=== PATIENT | male | born 1970 | race African-American/Black ===

== ENCOUNTER 2017-04-29 21:57 | Inpatient (IN) ==
[2017-04-29] MEDS ORDERED: MORPHINE 2 MG/1 ML SYRINGE ONE (22:05)
[2017-04-29] MEDS ORDERED: ONDANSETRON 4 MG/2 ML VIAL ONE (22:05)
[2017-04-29] MEDS ORDERED: ENOXAPARIN 60 MG/0.6 ML SYRINGE SUBCUT STA (22:13)
[2017-04-29] MEDS ORDERED: ENOXAPARIN 30 MG/0.3 ML SYRINGE ONE (22:17)
[2017-04-29] MEDS ORDERED: ENOXAPARIN 80 MG/0.8 ML SYRINGE SUBCUT ONE (22:17)
--- NOTE | 2017-04-29 22:21 | Emergency Department Note ---
IKori Rolonda, am scribing for, and in the presence of, Tonie Maguire DO 22: 21. IAndrez Debra, DO, personally performed the services described in this documentation, ascribed by Alicia Sheikh in my presence, and it is both accurate and complete . Arrival - Arrival Mode of Arrival: Stretcher Limitations: No Limitations Source: EMS, Old Records Reviewed, RN Notes Reviewed - History of Present Illness HPI Narrative: Pt is a 46 y/o male who presents to the ED via EMS for further evaluation of chest pain with an onset of minutes ago. 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 EMS states that pt stated his chest pain felt like "indigestion" and he began to smoke a cigarette s/p chest pain occurred and that is when pt became SOB. 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 Pt's BP was 180 in which EMS gave pt 4 baby ASA decreasing pt's BP to 108 then 103. EMS states that pt was ambulatory APPLICATION ANALYST. No other history available. Onset (ago): minute(s) Consistency: constant Severity: severe Severity scale (1-10): 8 Allergies/Adverse Reactions: Allergies Allergy/AdvReac Type Severity Reaction Status Date / Time No Known Allergies Allergy Verified 04/29/17 22:12 Home Medications: Home Medications Medication Instructions Recorded Confirmed Type No Known Home Medications [No 04/29/17 04/29/17 History Known Home Medications] Review of System - Review of System ROS unobtainable: other Exam Vital Signs: Vital Signs Temperature 98.3 F 04/29/17 21:57 Pulse Rate 69 04/29/17 21:57 Respiratory Rate 20 04/29/17 21:57 Blood Pressure 79/44 04/29/17 21:57 O2 Sat by Pulse Oximetry 98 04/29/17 21:57 - Head Head exam: Present: atraumatic, normocephalic - Eye Eye exam: Present: PERRL, EOMI - ENT ENT exam: Present: mucous membranes moist. Absent: mucous membranes dry - Neck Neck exam: Present: full ROM. Absent: tenderness - Chest Chest inspection: Present: symmetric chest wall rise. Absent: tenderness - Respiratory Respiratory exam: Present: rales (throughout) - Cardiovascular Cardiovascular exam: Present: bradycardia, normal heart sounds - Abdominal Exam Abdominal exam: Present: soft, normal bowel sounds. Absent: tenderness - Extremities Exam Extremities exam: Present: full ROM. Absent: tenderness - Back Exam Back exam: Present: full ROM. Absent: tenderness - Neurological Exam Neurological exam: Present: alert, oriented X3, CN II-XII intact - Psychiatric Psychiatric exam: Present: normal affect, normal mood - Skin Skin exam: Present: warm, dry, intact, normal color. 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 pt is stable at this time. he did admit to doing some cocaine yesterday Disposition Clinical Impression: ST elevation myocardial infarction (STEMI) Case discussed with: patient Disposition: Still a Patient Condition: Stable Time of Disposition: 22:15
[2017-04-29] MEDS ORDERED: ATORVASTATIN 40 MG TABLET ONE (22:22)
[2017-04-29 22:23] LABS: Basophils # 0.1 10*3/uL (0.0-0.2); Basophils % 0.4 % (0.0-0.8); Eosinophils # 0.1 10*3/uL (0.0-0.87); Eosinophils % 0.7 % (0.00-10.9); Hematocrit 37.5 VOL% (42.0-52.0); Hemoglobin 12.9 GM/DL (14.0-18.0); Immature Granulocytes % 0.5 %; Immature Granulocytes Absolute 0.06 #; Lymphocytes # 3.9 10*3/uL (1.4-4.0); Lymphocytes % 32.2 % (21.2-54.2); Mean Corpuscular HGB Conc 34.4 GM/DL (32-36); Mean Corpuscular Hemoglobin 32 PG (27-34); Mean Corpuscular Volume 91.9 FL (87-102); Monocytes # 0.9 10*3/uL (0.11-0.8); Monocytes % 7.2 % (1.7-12.7); Neutrophils # 7.1 10*3/uL (1.4-7.4); Platelet Count 204 T/CUMM (130-400); Red Blood Count 4.08 MC/CUMM (3.8-5.5); Red Cell Distribution Width 13.9 % (9.3-17.3)
[2017-04-29] MEDS ORDERED: TIROFIBAN 5,000 MCG/100 ML PREMIX IV ONE (22:23)
[2017-04-29] MEDS ORDERED: MIDAZOLAM 2 MG/2 ML VIAL IV ONE (22:31)
[2017-04-29] MEDS ORDERED: TICAGRELOR 90 MG TABLET PO ONE (22:31)
[2017-04-29] MEDS ORDERED: HYDROmorphone 2 MG/1 ML VIAL IV ONE (22:31)
[2017-04-29] MEDS ORDERED: LIDOCAINE 1% 20 ML VIAL MISC INJ ONE (22:31)
--- NOTE | 2017-04-29 22:33 | Cardiology History & Physical ---
Assessment and Plan (1) Cocaine abuse Status: Acute (2) Smoker Status: Acute (3) HTN (hypertension) Status: Acute (4) ST elevation myocardial infarction (STEMI) Status: Acute Assessment and plan: 1. 46-year-old smoker with hypertension who admits to using cocaine yesterday with chest pain in the low substernal area for about an hour and a half with anterior injury pattern, and ongoing severe chest pain. 2. Hypotensive; agree with normal saline bolus. 3. High intensity statin with full dose Lovenox, aspirin, and Aggrastat bolus and infusion 4. We will take emergently to the [facility] for angiography intervention is appropriate. 5. Discussed his absolute need to stop all smoking and cocaine going forward he reports "the cocaine was just a one-time mistake" Addendum: Of note he did have similar 5 hours of chest pain a month ago but he did not go to the hospital and he reports that he was fine in the interim. I discussed with the patient the risks and benefits of heart catheterization including but not limited to: , stroke, heart attack, vascular damage, reaction to medicine or dye, bleeding requiring blood transfusion, failure of the procedure, and the possible need for planned or emergency surgery. I have answered all the patient's questions regarding the procedure, and the patient is agreeable to proceed. History of Present Illness Chief complaint: cp History of present illness: Mr. Camilo is a 46 year old male Home Medications Medication Instructions Recorded Confirmed Type No Known Home Medications [No 04/29/17 04/29/17 History Known Home Medications] Allergies Allergy/AdvReac Type Severity Reaction Status Date / Time No Known Allergies Allergy Verified 04/29/17 22:12 Medical,Surgical,& Family Hx - Medical History Cardio: History of: Hypertension (noncompliant with meds) - Social History Smoking Status: Current every day smoker Frequency of Alcohol Use: Occasionally Type of Drug Use: Marijuana Cardiology Physical Exam - Constitutional Vitals: Vital Signs Temp Pulse Resp BP Pulse Ox 98.3 F 69 20 79/44 98 04/29/17 21:57 04/29/17 21:57 04/29/17 21:57 04/29/17 21:57 04/29/17 21:57 Intake and Output 04/29/17 04/29/17 04/29/17 07:59 15:59 23:59 Other: Weight 52.617 kg Patient Weight 04/29/17 23:59 Weight 52.617 kg General appearance: normal weight, severe distress - Head Head exam: Present: normal inspection, normocephalic, atraumatic - Neck Neck exam: Present: normal inspection - Respiratory Respiratory exam: Present: clear to auscultation bilaterally. Absent: stridor, wheezes - Cardiovascular Cardiovascular exam: Present: regular rate and rhythm. Absent: diastolic murmur , rubs, systolic murmur - GI/Abdominal GI/Abdominal exam: Present: soft. Absent: tenderness - Extremities Exam Extremities exam: Absent: edema - Neurological Exam Neurological exam: Present: oriented X3, other Result/EKG - Labs CBC & BMP: 04/29/17 22:11 Labs: Laboratory Results - last 24 hr 04/29/17 22:11 WBC 12.0 RBC 4.08 Hgb 12.9 L Hct 37.5 L MCV 91.9 MCH 32 MCHC 34.4 RDW 13.9 Plt Count 204 MPV 9.0 L Neut % (Auto) 59.0 Lymph % (Auto) 32.2 [place] % (Auto) 7.2 Eos % (Auto) 0.7 Baso % (Auto) 0.4 Neut # (Auto) 7.1 Lymph # (Auto) 3.9 [place] # (Auto) 0.9 H Eos # (Auto) 0.1 Baso # (Auto) 0.1 Immature Gran % 0.5 Nucleated RBC % 0.0 Immature Gran # 0.06 Nucleated RBCs # 0.00 - EKG EKG results: sinus rhythm (Anterior injury pattern with PVCs in her cervical chain)
[2017-04-29 22:41] LABS: INR 1.1; PT Patient Result 11.2 SECS
[2017-04-29 22:47] LABS: Barbiturates Screen,Urine Negative (Negative); Benzodiazepines Screen,Urine Negative (Negative); Cannabinoid Screen,Urine Positive (Negative); Opiate Screen,Urine Negative (Negative); Phencyclidine Screen,Urine Negative (Negative)
[2017-04-29 22:50] LABS: Alanine Aminotransferase 26 U/L (16-61); Albumin 3.2 G/DL (3.4-5.0); Alkaline Phosphatase 49 U/L (45-117); Aspartate Amino Transferase 27 U/L (0-37); Blood Urea Nitrogen 15 MG/DL (7-18); CKMB % 1.5 %; Calcium 8.4 MG/DL (8.5-10.1); Glucose 130 MG/DL (74-106); Osmolality,Calculated 285.1 MOS/KG (273-304); Sodium 142 MMOL/L (136-145); Total Protein 6.4 G/DL (6.4-8.3); Troponin I Only < 0.015 NG/ML (0.00-0.045)
[2017-04-29 22:57] LABS: Eosinophils 2 % (0-10); Lymphocytes 27 % (20-55); Segmented Neutrophils 64 % (50-85); Total Cells Counted 100
[2017-04-29 22:58] LABS: Platelet Estimate Normal
[2017-04-29] MEDS ORDERED: ACETAMINOPHEN 325 MG TABLET PO PRN (23:11)
--- NOTE | 2017-04-29 23:21 | Cardiac Catheterization ---
Date of Procedure:: 04/29/17 Post-op diagnosis: same Procedure: Procedures performed: 1. Left heart catheterization 2. Coronary angiography 3. Left ventriculography 4. Angioplasty and stenting of critical proximal LAD disease with drug-eluting stent (3.5 x 20 synergy) 5. Right femoral arteriotomy closure with minx device Brief clinical summary: Mr. cAharya is a 46-year-old smoker with history of recent cocaine use with anterior injury pattern on EKG. Description of procedure: After obtaining informed consent, the right groin was prepped and draped in the usual sterile fashion. Next a short 6 Hebrew sheath was placed in the right femoral artery using a modified Seldinger technique, after the patient received IV sedation and local anesthetic. Next and EBU 3.5 guiding cath was advancing his left coronary arm which engaged the vessel with some difficulty and provided modest support. Next a pro-water wire was advanced the distal LAD with little difficulty. After this a 3.0 x 15 balloon was advanced crosshair proximal LAD disease was dilated to approximately nominal pressures. There is residual stenosis of approximate 50% . The balloon was removed and a 3.5 x 20 Synergy stent was advanced across her disease and deployed at rated burst pressure. Stent was well-positioned but appear to be slightly undersized. Therefore without moving the balloon I slowly dilated up to above rated burst pressure to 4.1 mm. There was an excellent radiographic result. The patient's chest pain was dramatically improved after the procedure. His STs appeared to drop during the beginning of the procedure. Hemostasis was obtained with a mixed device as the sheath was inserted and a high bifurcation. There was slight residual bleeding and small hematoma which was controlled with manual pressure. Patient was transferred to the CCU in good condition after the procedure. Coronary angiography: Left main coronary is normal development free disease. Left anterior descending artery is large average caliber and wraps around the apex. There is a approximately thrombus causing approximate 95% stenosis but there is PATRICIO III flow. There are 3 thin diagonal branches. The circumflex gives off an average caliber long OM 1 and OM 2 branch and a large an average OM 3 branch. The right quires a dominant vessel is large an average caliber. There is large an average long PDA and a thin posterior lateral. Left ventriculography: Left ventricle is normal size is normal LV systolic function ejection fraction estimated 55%. There is no segmental wall motion normality. Impression: 1. Normal LV systolic function ejection fraction estimated 55% without segmental wall motion mildly 2. Right dominant system 3. Single-vessel coronary disease with thrombotic 95% proximal LAD disease ( culprit lesion) 4. Status post angioplasty and stenting of critical proximal LAD thrombus with drug-eluting stent (3.5 x 20 Synergy with excellent result after dilating to 4.01 mm Recommendation discussion: I would she we achieved very good result cart distending Mr. Camilo culprit proximal AT thrombus. He will need to continue on Brilinta and aspirin. We will watch him closely in the CCU. He had some hypotension initially which resolved in the [facility] after intervention and with normal saline bolus it was started in the ER. He will need to avoid exposure to smoking or cocaine to avoid recurrent cardiovascular events and stroke. Anesthesia: minimal conscious sedation Surgeon / Physician: Glenn Dominguez Playground Aide: other Estimated blood loss: minimal Specimens: none sent Condition: stable Disposition: ICU/CCU - Discharge Disposition: Still a Patient - Medications / Follow-up
[2017-04-29] MEDS ORDERED: SODIUM CHLORIDE 0.9% 1,000 ML IV SCH (23:30)
[2017-04-30 03:36] LABS: Apearance,Urine CLEAR (Clear); Bacteria,Urine Few /HPF (Few); Bilirubin,Urine Negative (Negative); Blood, Urine Large mg/dL (Negative); Glucose,Urine (UA) Negative (Negative); Ketones,Urine Negative (Negative); Nitrite,Urine Negative (Negative); Protein,Urine 30 MG/DL; RBC,Urine 108 /HPF (0-4); Urine Color Yellow (Yellow); Urine Specific Gravity > 1.060 (1.001-1.035); Urine Urobilinogen < 2.0 EU/DL (0.2-1.0)
--- NOTE | 2017-04-30 04:37 | EKG Report ---
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
[2017-04-30 04:56] LABS: Basophils % 0.2 % (0.0-0.8); Eosinophils % 0.2 % (0.00-10.9); Hematocrit 37.7 VOL% (42.0-52.0); Hemoglobin 12.9 GM/DL (14.0-18.0); Immature Granulocytes % 0.3 %; Immature Granulocytes Absolute 0.04 #; Lymphocytes # 1.8 10*3/uL (1.4-4.0); Lymphocytes % 14.9 % (21.2-54.2); Mean Corpuscular HGB Conc 34.2 GM/DL (32-36); Mean Corpuscular Hemoglobin 32 PG (27-34); Mean Corpuscular Volume 92.4 FL (87-102); Mean Platelet Volume 9.1 FL (9.6-12.0); Monocytes # 0.8 10*3/uL (0.11-0.8); Monocytes % 6.8 % (1.7-12.7); Neutrophils # 9.4 10*3/uL (1.4-7.4); Neutrophils % 77.6 % (38.7-73.9); Platelet Count 181 T/CUMM (130-400); Red Blood Count 4.08 MC/CUMM (3.8-5.5); Red Cell Distribution Width 13.9 % (9.3-17.3); White Blood Count 12.2 T/CUMM (4-12)
[2017-04-30 05:27] LABS: CKMB % 4.7 %; Calcium 7.9 MG/DL (8.5-10.1); Osmolality,Calculated 281.3 MOS/KG (273-304); Potassium 4.4 MMOL/L (3.5-5.1)
[2017-04-30 05:29] LABS: Troponin I Only 2.82 NG/ML (0.00-0.045)
--- NOTE | 2017-04-30 06:25 | EKG Report ---
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
--- NOTE | 2017-04-30 06:49 | XRay Report ---
XR chest 1V portable Indication: Chest pain Comparison: None available Findings: The heart and mediastinum are normal in size and configuration. The pulmonary vascularity is normal in caliber. No lung infiltrates, effusions, pneumothorax or other abnormality is demonstrated. Impression: Normal chest x-ray PROCEDURE INTERPRETED AT [facility] DEPARTMENT OF RADIOLOGY Final Report Signed by: Dr. Alexis Hill
--- NOTE | 2017-04-30 06:51 | Cardiology Progress Note ---
Cardiology - PN: Subj Interval history: Cardiology note Day 1 status post anterior GA with LAD stent No chest pain Telemetry shows sinus rhythm in the 60s O2 sat 96% on room air Blood pressure 117/70 Regular rhythm no murmur or gallop Clear lungs Abdomen benign Right groin soft and dry. No bruit or hematoma. Distal pulses 2+ symmetric. Lab data White count 12.2 hemoglobin 12.9 hematocrit 37.7 141 sodium potassium 4.4 chloride 110 CO2 25 BUN 15 creatinine 1.10 glucose 95 Peak CPK 401 troponin 2.82 BNP 14 Urine drug screen positive for cocaine and marijuana Impression Status post anterior GA with proximal LAD stent EF 55% with patent right coronary and circumflex Cocaine abuse Plan DC yun Aspirin 81 mg daily and Brilinta 90 mg twice daily Begin atorvastatin 40 mg daily Routine groin precautions discussed with patient Transfer to telemetry okay with me Exam (Progress Note) - Constitutional Vitals: Period Temp Pulse Resp BP Sys/Paz Pulse Ox Last 24 Hr 97.4 F-98.3 F 55-78 11-22 79-126/44-82 93-98 Result/EKG - Labs CBC & BMP: 04/30/17 04:25 04/30/17 04:25 Labs: Laboratory Results - last 24 hr 04/29/17 04/29/17 04/29/17 22:11 22:11 22:11 WBC 12.0 RBC 4.08 Hgb 12.9 L Hct 37.5 L MCV 91.9 MCH 32 MCHC 34.4 RDW 13.9 Plt Count 204 MPV 9.0 L Neut % (Auto) 59.0 Lymph % (Auto) 32.2 [place] % (Auto) 7.2 Eos % (Auto) 0.7 Baso % (Auto) 0.4 Neut # (Auto) 7.1 Lymph # (Auto) 3.9 [place] # (Auto) 0.9 H Eos # (Auto) 0.1 Baso # (Auto) 0.1 Total Counted 100 Immature Gran % 0.5 Nucleated RBC % 0.0 Immature Gran # 0.06 Segmented Neutrophils 64 Lymphocytes 27 Monocytes 7 Eosinophils 2 Nucleated RBCs # 0.00 Platelet Estimate Normal Pappenheimer Bodies Residential [place] INR 1.1 PT Patient/Control Mix 11.2 Circ Anticoag PTT 26.0 Sodium 142 Potassium 4.0 Chloride 109 H Carbon Dioxide 24 Anion Gap 13.0 BUN 15 Creatinine 1.30 GFR Calculation 72 BUN/Creatinine Ratio 11.00 Glucose 130 H Calculated Osmolality 285.1 Calcium 8.4 L Total Bilirubin 0.80 AST 27 ALT 26 Alkaline Phosphatase 49 Total Creatine Kinase 401 H CK-MB (CK-2) 6.0 H CK and CKMB Interp 1.5 Troponin I < 0.015 B-Natriuretic Peptide Total Protein 6.4 Albumin 3.2 L Globulin 3.2 Albumin/Globulin Ratio 1.0 L Urine Color Urine Appearance Urine pH Ur Specific [place] Urine Protein Urine Glucose (UA) Urine Ketones Urine Blood Urine Nitrate Urine Bilirubin Urine Urobilinogen Urine Leukocytes Urine RBC Urine Bacteria Ur Culture Indicated? Urine Opiates Screen Ur Barbiturates Screen Ur Phencyclidine Scrn U Amphetamine/Methamph U Benzodiazepines Scrn U Cocaine Metab Screen U Cannabinoids Screen 04/29/17 04/29/17 04/30/17 22:11 22:11 01:00 WBC RBC Hgb Hct MCV MCH MCHC RDW Plt Count MPV Neut % (Auto) Lymph % (Auto) [place] % (Auto) Eos % (Auto) Baso % (Auto) Neut # (Auto) Lymph # (Auto) [place] # (Auto) Eos # (Auto) Baso # (Auto) Total Counted Immature Gran % Nucleated RBC % Immature Gran # Segmented Neutrophils Lymphocytes Monocytes Eosinophils Nucleated RBCs # Platelet Estimate Pappenheimer Bodies INR PT Patient/Control Mix Circ Anticoag PTT Sodium Potassium Chloride Carbon Dioxide Anion Gap BUN Creatinine GFR Calculation BUN/Creatinine Ratio Glucose Calculated Osmolality Calcium Total Bilirubin AST ALT Alkaline Phosphatase Total Creatine Kinase CK-MB (CK-2) CK and CKMB Interp Troponin I B-Natriuretic Peptide 14 Total Protein Albumin Globulin Albumin/Globulin Ratio Urine Color Yellow Urine Appearance Clear Urine pH 5.0 Ur Specific [place] > 1.060 H Urine Protein 30 Urine Glucose (UA) Negative Urine Ketones Negative Urine Blood Large Urine Nitrate Negative Urine Bilirubin Negative Urine Urobilinogen < 2.0 H Urine Leukocytes Negative Urine RBC 108 Urine Bacteria Few Ur Culture Indicated? Not indicated Urine Opiates Screen Negative Ur Barbiturates Screen Negative Ur Phencyclidine Scrn Negative U Amphetamine/Methamph Negative U Benzodiazepines Scrn Negative U Cocaine Metab Screen Positive H U Cannabinoids Screen Positive H 04/30/17 04/30/17 04:25 04:25 WBC 12.2 H RBC 4.08 Hgb 12.9 L Hct 37.7 L MCV 92.4 MCH 32 MCHC 34.2 RDW 13.9 Plt Count 181 MPV 9.1 L Neut % (Auto) 77.6 H Lymph % (Auto) 14.9 L [place] % (Auto) 6.8 Eos % (Auto) 0.2 Baso % (Auto) 0.2 Neut # (Auto) 9.4 H Lymph # (Auto) 1.8 [place] # (Auto) 0.8 Eos # (Auto) 0.0 Baso # (Auto) 0.0 Total Counted Immature Gran % 0.3 Nucleated RBC % 0.0 Immature Gran # 0.04 Segmented Neutrophils Lymphocytes Monocytes Eosinophils Nucleated RBCs # 0.00 Platelet Estimate Pappenheimer Bodies INR PT Patient/Control Mix Circ Anticoag PTT Sodium 141 Potassium 4.4 Chloride 110 H Carbon Dioxide 25 Anion Gap 10.4 BUN 15 Creatinine 1.10 GFR Calculation 88 BUN/Creatinine Ratio 13.00 Glucose 95 Calculated Osmolality 281.3 Calcium 7.9 L Total Bilirubin AST ALT Alkaline Phosphatase Total Creatine Kinase 381 H CK-MB (CK-2) 17.9 H D CK and CKMB Interp 4.7 Troponin I 2.820 H D B-Natriuretic Peptide Total Protein Albumin Globulin Albumin/Globulin Ratio Urine Color Urine Appearance Urine pH Ur Specific [place] Urine Protein Urine Glucose (UA) Urine Ketones Urine Blood Urine Nitrate Urine Bilirubin Urine Urobilinogen Urine Leukocytes Urine RBC Urine Bacteria Ur Culture Indicated? Urine Opiates Screen Ur Barbiturates Screen Ur Phencyclidine Scrn U Amphetamine/Methamph U Benzodiazepines Scrn U Cocaine Metab Screen U Cannabinoids Screen Specialty Discharge - Follow Up or Referrals
[2017-04-30] MEDS: TICAGRELOR 90 MG TABLET PO SCH ×2 (08:07→21:49)
[2017-04-30] MEDS: ASPIRIN EC 81 MG TABLET PO SCH (08:08)
[2017-04-30] MEDS ORDERED: ATORVASTATIN 40 MG TABLET PO SCH (21:00)
[2017-04-30] MEDS: CARVEDILOL 6.25 MG TABLET PO SCH (21:49)
[2017-05-01 06:12] LABS: Basophils % 0.4 % (0.0-0.8); Eosinophils # 0.1 10*3/uL (0.0-0.87); Hematocrit 37.3 VOL% (42.0-52.0); Hemoglobin 12.9 GM/DL (14.0-18.0); Immature Granulocytes % 0.4 %; Immature Granulocytes Absolute 0.03 #; Lymphocytes # 1.9 10*3/uL (1.4-4.0); Lymphocytes % 24.4 % (21.2-54.2); Mean Corpuscular HGB Conc 34.6 GM/DL (32-36); Mean Corpuscular Hemoglobin 32 PG (27-34); Mean Corpuscular Volume 91.9 FL (87-102); Mean Platelet Volume 9.1 FL (9.6-12.0); Monocytes # 0.5 10*3/uL (0.11-0.8); Monocytes % 6.2 % (1.7-12.7); Neutrophils # 5.4 10*3/uL (1.4-7.4); Neutrophils % 67.6 % (38.7-73.9); Platelet Count 170 T/CUMM (130-400); Red Blood Count 4.06 MC/CUMM (3.8-5.5); Red Cell Distribution Width 13.8 % (9.3-17.3); White Blood Count 7.9 T/CUMM (4-12)
[2017-05-01 06:47] LABS: Calcium 8.5 MG/DL (8.5-10.1); Osmolality,Calculated 274.7 MOS/KG (273-304)
[2017-05-01 06:50] LABS: Risk Ratio 2.79; VLDL CHOLESTEROL 13.8 MG/DL
[2017-05-01 07:57] VITALS: BP 131/78
[2017-05-01] MEDS: ASPIRIN EC 81 MG TABLET PO SCH (08:40)
[2017-05-01] MEDS: TICAGRELOR 90 MG TABLET PO SCH (08:40)
[2017-05-01] MEDS: CARVEDILOL 6.25 MG TABLET PO SCH (08:41)
[2017-05-01] MEDS ORDERED: CLOPIDOGREL 300 MG TABLET PO ONE (09:06)
--- NOTE | 2017-05-01 09:32 | Discharge Summary ---
Hospital Course - Hospital Course Hospital Course: [place] [place] ATTENDANT: DR. WATTERS SUMMARY: 46-year-old -[place] male, presented to the ED [facility] via EMS April 29, 2017 after experiencing chest pain. Was diagnosed with [facility] TERESE on arrival, was hypotensive requiring saline bolus. Dr. Watters took the patient emergently to the cardiac catheterization lab with the following as noted: Impression: 1. Normal LV systolic function ejection fraction estimated 55% without segmental wall motion mildly 2. Right dominant system 3. Single-vessel coronary disease with thrombotic 95% proximal LAD disease ( culprit lesion) 4. Status post angioplasty and stenting of critical proximal LAD thrombus with drug-eluting stent (3.5 x 20 Synergy with excellent result after dilating to 4.01 mm Recommendation discussion: I would she we achieved very good result cart distending Mr. Camilo culprit proximal AT thrombus. He will need to continue on Brilinta and Aspirin. We will watch him closely in the CCU. 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 He will need to avoid exposure to smoking or cocaine to avoid recurrent cardiovascular events and stroke. He tolerated the procedure well without complication was returned to ICU in stable condition. Patient was found to be marijuana and cocaine positive. Labs were stable post intervention. Greater than 30 minutes was spent today discussing the importance of continued cessation of marijuana and cocaine, tobacco abuse. Also, patient tells me he has no income as he has no job. For this reason, his Brilinta was discontinued this morning and he was given a 300 mg oral dose of Plavix. He will be sent home on medications he can purchase at [facility] for less than $4 per month with the exception of Plavix. He verbalizes the importance of taking aspirin and Plavix daily without fail for the next year. I will give him a follow-up appointment with Dr. Watters in approximately 2-3 weeks. Patient was counseled regarding the need for cardiac rehabilitation however, he has no insurance and feels that he cannot financially afford this. I have encouraged him to further discuss this with Dr. Watters at the next visit. There was no pharmacy listed for Mr. Camilo therefore he was given a handwritten prescription for the following medications. Each with 11 refills. Aspirin 81 mg orally daily Atorvastatin 40 mg orally each evening Carvedilol 6.25 mg orally twice daily Plavix 75 mg daily without fail Blood pressure will not allow for introduction of an BARBARA inhibitor at this time and, for the fact that he has not had compliance in the past, I hesitate to initiate a medication at this time which could injure his kidneys or increase his potassium without close follow-up. - Time spent with patient Time with patient DS: Greater than 30 minutes Time spent discussing smoking cessation with patient: 3 to 10 minutes Diagnosis - Discharge Diagnosis (1) CAD (coronary artery disease) Status: Chronic (2) Dyslipidemia Status: Chronic (3) Marijuana abuse Status: Chronic (4) ST elevation myocardial infarction (STEMI) Status: Resolved (5) Cocaine abuse Status: Chronic (6) Smoker Status: Chronic (7) HTN (hypertension) Status: Chronic Specialty Discharge - Follow Up or Referrals Follow up with: Glenn Watters MD [Physician] - 05/15/17 10:00 am (2-3 weeks) Fer Rushing MD [Physician] - ((Does not need an appointment with Dr. Rushing just with Dr. Watters)) Discharge Plan - Discharge Data Disposition: Disch To Home/Self Care Condition at Discharge: Stable Discharge Diet: heart healthy Activity: other (Post cath expectations) Hygiene: other (Post cath expectations) Weight Bearing at Discharge: other (Post cath expectations) Driving: other (Post cath expectations) Contact your physician if you experience:: fever over 101, Difficulty voiding, Redness or swelling, Nausea/Vomiting, Shortness of breath, Bleeding, pain uncontrolled by pain medications - Discharge Medications New Carvedilol [Coreg] 6.25 mg PO BID #60 tablet Aspirin EC Tab 81 mg PO DAILY #30 tablet Atorvastatin [Lipitor] 40 mg PO BEDTIME #30 tablet Clopidogrel [Plavix] 75 mg PO DAILY #30 tablet - Follow Up or Referral Follow Up: Glenn Watters MD [Physician] - 05/15/17 10:00 am (2-3 weeks) Fer Rushing MD [Physician] - ((Does not need an appointment with Dr. Rushing just with Dr. Watters)) - Forms/Instructions Instructions: Myocardial Infarction (GEN), Left Heart Catheterization (DC), How to Stop Smoking (GEN), Heart Healthy Diet (GEN), Cigarette Smoking and Your Health, Contaminated Land Consultant (GEN), Coronary Intravascular Stent Placement, Contaminated Land Consultant (GEN) Exam - Constitutional Vitals: Period Temp Pulse Resp BP Sys/Paz Pulse Ox Last 24 Hr 97.7 F-98.8 F 60-78 16-24 97-138/68-98 95-100 Exam: General: [Appears well with no apparent distress.] [Pleasant and cooperative. ] [Appears comfortable.] HEENT: [PERRL, normocephalic, atraumatic. Mucous membranes moist. No jaundice noted. Conjunctiva moist and clear, sclerae anicteric] Neck: No JVD/HJR, no thyromegaly or lymphadenopathy noted. No carotid bruit appreciated Cardiac: [Regular rate and rhythm.] [No murmur rub or gallop.] Lungs: [Clear to auscultation without accessory muscle use to assist the respiratory pattern.] Not requiring oxygen. Abdomen: Soft, bowel sounds normoactive. Nontender and nondistended. No abdominal bruit or thrill noted. No masses noted. Musculoskeletal: No fluid collection. Decreased range of motion is noted. Extremities: Right groin soft, free of hematoma or bruit. No clubbing, cyanosis noted. [ No edema noted.] Upper extremity pulses 2+. Lower extremity pulses 2+. Capillary refill less than 3 seconds. Skin: No unusual lesions or rashes. No skin breakdown appreciated. Neuro: Awake, alert and oriented 3. Moves all extremities well without hemiparesis or paralysis. No essential tremor is appreciated. Discharge Results Labs on day of discharge: Labs from last 24 hours 05/01/17 05/01/17 05/01/17 05:15 05:15 05:15 WBC 7.9 D RBC 4.06 Hgb 12.9 L Hct 37.3 L MCV 91.9 MCH 32 MCHC 34.6 RDW 13.8 Plt Count 170 MPV 9.1 L Neut % (Auto) 67.6 Lymph % (Auto) 24.4 [place] % (Auto) 6.2 Eos % (Auto) 1.0 Baso % (Auto) 0.4 Neut # (Auto) 5.4 Lymph # (Auto) 1.9 [place] # (Auto) 0.5 Eos # (Auto) 0.1 Baso # (Auto) 0.0 Immature Gran % 0.4 Nucleated RBC % 0.0 Immature Gran # 0.03 Nucleated RBCs # 0.00 Sodium 138 Potassium 4.0 Chloride 106 Carbon Dioxide 27 Anion Gap 9.0 BUN 16 Creatinine 1.10 GFR Calculation 87 BUN/Creatinine Ratio 14.00 Glucose 86 Calculated Osmolality 274.7 Calcium 8.5 Magnesium 2.0 Triglycerides 69 Cholesterol 131 LDL Cholesterol 75.0 VLDL Cholesterol 13.8 HDL Cholesterol 47 Heart Disease Risk Ratio 2.79 - Imaging and Cardiology Cardiology Procedure: report reviewed by me Procedure: Chest x-ray: report reviewed by me DS: Provider Date of admission: 04/29/17 23:51 Primary care physician: . No PCP Attending physician on admission: Glenn Milligan Consults: 04/29/17 23:11 Consult to Cardiac Rehabilitation [CONS] Routine Reason for Cardiac Rehabilitation: Appt Out Pt Cardiac Rehab Consult Comment: stemi 04/30/17 00:04 Consult to Dietitian [CONS] Routine Reason for Dietitian: Dietary Consult Discharging clinician: Faustina Vasques NP Expected date of discharge: 05/01/17
--- NOTE | 2017-05-01 11:37 | Cardiology Progress Note ---
Cardiology - PN: Subj Interval history: Cardiology note Status post anterior [place] with LAD stent. No chest pain. Telemetry remains benign. Patient is comfortable and wants to go home. Regular rhythm no gallop Clear lungs Abdomen benign Right groin soft and dry. No bruit good distal pulse Lab data White count 7.9 hemoglobin 12.9 hematocrit 37.3 Sodium 138 potassium 4.0 chloride 106 CO2 27 BUN 16 creatinine 1.10 impression Status post anterior [place] with proximal LAD stent EF 55% with patent right coronary and circumflex Cocaine abuse Plan Home today Aspirin 81 mg daily Will switch to Plavix 75 mg daily Atorvastatin 40 mg daily Carvedilol 6.25 g twice daily Exam (Progress Note) - Constitutional Vitals: Period Temp Pulse Resp BP Sys/Paz Pulse Ox Last 24 Hr 97.7 F-98.8 F 60-78 16-24 97-138/68-98 95-100 Result/EKG - Labs CBC & BMP: 05/01/17 05:15 05/01/17 05:15 Labs: Laboratory Results - last 24 hr 05/01/17 05/01/17 05/01/17 05:15 05:15 05:15 WBC 7.9 D RBC 4.06 Hgb 12.9 L Hct 37.3 L MCV 91.9 MCH 32 MCHC 34.6 RDW 13.8 Plt Count 170 MPV 9.1 L Neut % (Auto) 67.6 Lymph % (Auto) 24.4 [place] % (Auto) 6.2 Eos % (Auto) 1.0 Baso % (Auto) 0.4 Neut # (Auto) 5.4 Lymph # (Auto) 1.9 [place] # (Auto) 0.5 Eos # (Auto) 0.1 Baso # (Auto) 0.0 Immature Gran % 0.4 Nucleated RBC % 0.0 Immature Gran # 0.03 Nucleated RBCs # 0.00 Sodium 138 Potassium 4.0 Chloride 106 Carbon Dioxide 27 Anion Gap 9.0 BUN 16 Creatinine 1.10 GFR Calculation 87 BUN/Creatinine Ratio 14.00 Glucose 86 Calculated Osmolality 274.7 Calcium 8.5 Magnesium 2.0 Triglycerides 69 Cholesterol 131 LDL Cholesterol 75.0 VLDL Cholesterol 13.8 HDL Cholesterol 47 Heart Disease Risk Ratio 2.79 Specialty Discharge - Follow Up or Referrals Follow up with: Glenn Dominguez MD [Physician] - 08/08/17 10:00 am (2-3 weeks) Fer Rushing MD [Physician] - ((Does not need an appointment with Dr. Rushing just with Dr. Dominguez))
[2017-05-02] MEDS ORDERED: CLOPIDOGREL 75 MG TABLET PO SCH (09:00)
--- NOTE | 2017-05-02 13:48 | Physician Query Form ---
CLICK EDIT DOCUMENT TO SELECT QUERY ANSWER --> OK --> SIGN Yanci Jamison RN Clinical Javascript Web Developer W) [phone] (f) [phone] [email or web address] PROVIDERS: Make your selection(s) from the choices in EACH section by typing an "x" and enter comments in the comment section. Please use your independent medical judgment in providing your response. This request does not imply that any particular answer is desired or expected. CLINICAL INDICATORS: (Providers should not edit this section) Based on documentation of "acute STEMI. Admits to using cocaine yesterday with chest pain in the low substernal area for about an hour and a half with anterior injury pattern". Heart catheterization report states "culprit proximal AT thrombus". Based on the above, could you clarify the appropriate diagnosis, if significant , that supports the above abnormalities and additional evaluation, monitoring, and/or treatment rendered: ( x) STEMI due to cocaine use ( ) STEMI due to ( ) Other, please specify: ( ) Clinically unable to determine COMMENTS: PLEASE ALSO DOCUMENT RESPONSE IN PROGRESS NOTES AND/OR DISCHARGE SUMMARY Use of terms such as suspected, likely, or probable (associated with a specific diagnosis that is being evaluated, monitored, or treated as if it exists) are acceptable and can be restated in the discharge summary if not ruled out. MTDD
== END 2017-05-01 11:00 | disposition home or self-care (01) | DRG 981 ==
LOC: EDUNIT# → N.ED 21:57 → N.ICU 23:51 → N.TELES 04-30 19:46
PROVIDERS: ADMIT Internal Medicine Cardiovascular Disease; ATTEND Internal Medicine Cardiovascular Disease
PROC: CLCCHCL (ICD-10-PCS; 2017-04-29 23:00)